=== PATIENT | female | born 1985 | race Caucasian/White ===

== ENCOUNTER 2024-12-17 16:49 | Emergency (ER) | payer OTHER, SELFPAY ==
[2024-12-17 16:49] VITALS: BMI 30.1
[2024-12-17 16:52] VITALS: BP 133/89
[2024-12-17 17:13] LABS: % Basophils 0.4 % (0-2); % Eosinophils 1.7 % (0-6); % Immature Granulocytes 0.4 % (0-0.5); % Lymphocytes 12.3 % (20.5-51.1); % Monocytes 8.5 % (1.7-9.3); % Neutrophils 76.7 % (42.2-75.2); Absolute Eosinophils 0.1 10^3/uL (0-0.7); Absolute Monocytes 0.7 10^3/uL (0.1-0.6); Absolute Neutrophils 5.9 10^3/uL (1.4-6.5); Hematocrit 37.2 % (37.0-47.0); Hemoglobin 12.9 g/dL (12.0-16.0); Mean Corp Hgb Conc. 34.7 g/dL (33.0-37.0); Mean Corpuscular Volume 92.3 fL (81.0-99.0); Mean Platelet Volume 9.7 fL (7.4-10.4); Nucleated Red Blood Cells % 0 %; Platelet Count 241 10^3/uL (130-400); Red Blood Cell Count 4.03 10^6/uL (4.20-5.40); Red Cell Dist. Width 12.6 % (11.5-14.5); White Blood Cell Count 7.7 10^3/uL (4.8-10.8)
[2024-12-17 17:30] LABS: ALT (SGPT) 22 U/L (0-35); AST (SGOT) 28 U/L (14-36); Albumin 4.8 g/dl (3.5-5.0); Alkaline Phosphatase 62 U/L (38-126); Blood Urea Nitrogen 11 mg/dl (7-17); Calcium 8.9 mg/dl (8.4-10.2); Carbon Dioxide 26 mmol/L (22-30); Glucose 134 mg/dl (70-99); Total Bilirubin 0.5 mg/dl (0.2-1.3); Total Protein 7.2 g/dl (6.3-8.2); eGFR > 60.00
[2024-12-17 17:31] VITALS: BP 118/73
[2024-12-17 17:34] LABS: HCG, Serum Qualitative Screen Negative
--- NOTE | 2024-12-17 17:38 | ED.GENMED ---
History of Present Illness
General
Chief Complaint: Heart Rate Problem
Source: patient
Exam Limitations: none
Time Seen by Provider: 12/17/24 17:27
History of Present Illness
History of Present Illness:
See MDM
Past History
Past History
ED Past Medical History: Hypothyroidism and Other (ms)
ED Past Surgical History: Other (Thyroidectomy)
Social History
Tobacco: Non-smoker
Alcohol: None
Drug: None
Personal: Single
Living: with family
Employment: Employed
Family History
Family History: Other (Noncontributory)
Phy Exam
Physical Exam
Physical Exam:
See MDM
Course
Orders/Labs/Results
Orders:
Orders
12/17/24 16:55
Electrocardiogram (*1) Urgent
Reason for Study: Palpitations
12/17/24 16:56
Test Result ONCE
12/17/24 17:01
CMP [Comprehensive Metabolic Panel] Urgent
Complete Blood Count/With Diff Urgent
HCG, Serum Qualitative Screen Urgent
TSH Reflex To Free T4 Urgent
Troponin I Urgent
Abnormal Lab Results
12/17/24
17:01
RBC 4.03 L 10^6/uL
(4.20-5.40)
MCH 32.0 H pg
(27.0-31.0)
Absolute Lymphs (auto) 1.0 L 10^3/uL
(1.2-3.4)
Absolute Monos (auto) 0.7 H 10^3/uL
(0.1-0.6)
Neutrophils % 76.7 H %
(42.2-75.2)
Lymphocytes % 12.3 L %
(20.5-51.1)
Glucose 134 H mg/dl
(70-99)
12/17/24 17:01
12/17/24 17:01
Vital Signs
Initial and Last Documented VS:
Initial Vital Signs
Temp Pulse Resp BP Pulse Ox
97.8 F 89 16 133/89 99
12/17/24 16:52 12/17/24 16:52 12/17/24 16:52 12/17/24 16:52 12/17/24 16:52
Last Documented Vital Signs
Temp Pulse Resp BP Pulse Ox
97.8 F 66 13 99/60 97
12/17/24 16:52 12/17/24 18:45 12/17/24 18:45 12/17/24 18:00 12/17/24 18:45
MDM/Problems Addressed
Differential Diagnosis Includes:
HPI and MDM Narrative:
39-year-old female presenting for evaluation of palpitations. Patient states she noted the palpitations earlier in the morning after running errands. She states her heart felt fast and her watch indicated that her heart rate was 140 bpm. She
called 911 and the heart rate was confirmed. She states this lasted about an hour and a half. Given her prior history, she is unsure if this is related to MS. She does have a history of hypothyroidism. When she arrived to the emergency
department, patient in a normal sinus rhythm.
Patient does admit to feeling mildly dehydrated and acknowledging that she was panicking. Patient given a large cup of water. EKG within normal limits. Will continue to monitor on telemetry and obtain basic blood work including thyroid function
Physical exam
General: Well appearing and non-toxic
HEENT: protecting airway
Neck: appears supple
CV: No evidence of cyanosis. Regular and rhythm
Resp: No accessory muscle use
Abd: Non-distended
Extremities: No deformities. No leg tenderness or unilateral edema
Neuro: alert
Psych: Mildly anxious
Skin: Intact
Problems Addressed including Acute and Chronic Conditions affecting care:
1. Palpitations and tachycardia
Acuity: acute
Prognosis: stable
Details: Symptoms appear to self resolved. We discussed possibility of SVT versus A-fib. Will continue to monitor on telemetry
Updates
Workup shows no clinically relevant abnormalities. Patient remains in rate controlled sinus rhythm throughout her stay. Discussed Holter monitor and return precautions
Differential Diagnosis (but not limited to): Resolved A-fib, resolved SVT, anxiety
Testing considered: Troponin but symptoms have resolved
Drug therapy (if applicable): OTC meds, please see d/c instruction regarding Rx drugs
Amount and/or Complexity of Data Reviewed
Clinical info obtained from: Patient
External data reviewed: N/A
Labs I independently reviewed (but not limited to): Troponin and electrolytes within normal limits
Radiology: N/A
Pulse Ox: not hypoxic
EKG independently reviewed: sinus rhythm, normal axis, no STEMI
Parking Enforcement Officer: Sinus rhythm
Critical Care: N/A
Risk of Complication:
Social Determinants of health: Good social support
Discussed with other providers: N/A
Escalation of Care includes Admit/Obs: After being observed in the Emergency Department, pt stable for discharge.
Occasional wrong word or 'sound a like' substitutions may have occurred due to the inherent limitations of voice recognition software. Read the chart carefully and recognize, using context, where substitutions have occurred.
*Critical Care Note
Total Time (30-74mins, 75-104mins- exclusive of procedures): Not Applicable
ED Attending Note
-
Portions of this chart may have been created with voice recognition software.� Occasional wrong word or��sound alike� substitutions may have occurred due to the inherent limitations of voice recognition software.
Discharge Plan
Departure
Patient Disposition: Home (Routine Discharge)
Date of Disposition: 12/17/24
Time of Disposition: 19:13
Patient with high blood pressure during this ER visit?: No
Discharge Problem:
Heart palpitations
Instructions: Palpitations (DC)
Prescriptions:
No Action
levothyroxine [Synthroid] 137 MCG tablet
137 mcg PO DAILY
cyanocobalamin (vitamin B-12) 1,000 MCG tablet
1,000 mcg PO DAILY
cholecalciferol (vitamin D3) 1,000 UNITS tablet
1,000 units PO DAILY
magnesium oxide 400 MG tablet
400 mg PO DAILY
Vitamin B6
1 tab PO DAILY
acetaminophen 325 MG tablet
650 mg PO Q4HPRN PRN (Reason: mild pain/LOYD/temp> 100.4F) 0RF
prednisone 10 MG tablet
10 mg PO DAILY Qty: 18 0RF
baclofen 10 MG tablet
5 mg PO HS Qty: 14 0RF
gabapentin 100 MG capsule
100 mg PO TID Qty: 30 0RF
Referrals:
[facility], [Other]
Marlon Alfaro DO [Family Provider] -
Activity Restrictions/Additional Instructions:
Please return for any worsening symptoms.
You may return at any time if you have further concerns.
As we discussed, I cannot tell you exactly what your heart rhythm was while you were symptomatic.
Please follow up with your doctor at the first available appointment, preferably this week. Please discuss obtaining outpatient Holter monitor.
Thank you for choosing [facility].
Interventions
Interventions:
*Risk Screen - Suicide Last Done: 12/17/24 16:52
*General Assessment Last Done: 12/17/24 18:00
*Neglect/Abuse Screening Last Done: 12/17/24 16:52
ED- Fall Risk Assessment Last Done: 12/17/24 18:00
*ED COVID-19 Vaccine History Last Done: 12/17/24 18:00
ED- Cardiac Assessment Last Done: 12/17/24 18:00
ED- Pulmonary Assessment Last Done: 12/17/24 18:00
Discharge Date and Time
Print Language: MARTINIQUAIS
[2024-12-17 17:40] LABS: Chloride 103 mmol/L (98-107); Potassium 3.7 mmol/L (3.5-5.1); Sodium 137 mmol/L (135-145)
[2024-12-17 17:42] LABS: Troponin I < 0.012 ng/ml
[2024-12-17 18:00] VITALS: BP 99/60
[2024-12-17 18:01] LABS: TSH Reflex To Free T4 1.72 uIU/ml (0.47-4.68)
[2024-12-17 19:00] VITALS: BP 101/71
== END 2024-12-17 19:50 | disposition home or self-care (01) ==
LOC: EMR 16:49
PROVIDERS: Emergency Medicine; EMERGENCY PHYSICIAN Student in an Organized Health Care Education/Training Program; FAMILY PHYSICIAN Family Medicine
DX: R00.2 Palpitations (principal); E03.9 Hypothyroidism, unspecified
CPT/HCPCS: 99284; 80053; 84443; 84484; 84703; 85025; 93005